=== PATIENT | female | born 1970 | race Caucasian/White ===

== ENCOUNTER 2018-03-26 14:20 | Emergency (ER) | payer SELFPAY ==
--- OUTSIDE RECORDS SUMMARY | 2018-03-26 14:34 | XMS REPORT ---
:1970 Author Organization [facility] Address [address] [id number] Care Team Providers Name Role Phone Hui Tabares Unavailable Unavailable PROBLEMS Type Condition ICD9-CM IYS54-VD Onset Condition SNOMED Code Code Code Dates Status Problem Vaginal dryness N89.8 Active 18314088 Problem Gastroesophageal K21.9 Active 891323296 reflux disease, esophagitis presence not specified Problem Perimenopausal N95.1 Active 982860025 vasomotor symptoms Problem Varicose veins of I83.813 Active 22100097 both lower extremities with pain Problem Anxiety F41.9 Active 98084972 Problem Breast symptom N64.9 Active 426548589 Problem Mastodynia N64.4 Active 37895440 Problem Low libido R68.82 Active 6690379 Problem Sinusitis, J32.9 Active 71755592 unspecified chronicity, unspecified location Problem Diverticulitis of K57.32 Active 860110933 colon (without mention of hemorrhage) Problem Unspecified pruritic L29.9 Active 886484289 disorder Problem Depressive disorder, F32.9 Active 96940664 not elsewhere classified Problem Allergy, unspecified T78.40XA Active 311145501 not elsewhere classified Problem Anxiety state F41.1 Active 307576225 ALLERGIES Substance Reaction Event Type Date Status PENICILLIN RASH Non Drug Allergy Feb, Active Omeprazole joint pain Drug Allergy Feb, Active Flexeril heartburn Drug Allergy Feb, Active Augmentin Nausea/Vomiting Drug Allergy Feb, Active PAXIL RASH Non Drug Allergy Feb, Active LATEX Rash Non Drug Allergy Feb, Active ENCOUNTERS Encounter Location Date Diagnosis [facility] Tomy Boykin [address] Mar, 2018 [place] [address] [facility] [address] Feb, [place] [address] [facility] Lucretia [address] Feb, Bilateral leg cramps R25.2 [place] [address] and Varicose veins of both lower extremities, unspecified whether complicated I83.93 [facility] [address] Feb, Bilateral leg cramps R25.2 [place] [address] and Anxiety F41.9 [facility] [address] [facility] Feb, [place] [address] [facility] [address] [facility] 05 Feb, 2018 [place] [address] [facility] [address] [facility] Feb, [place] [address] [place] [address] [facility] Jan, [place] [address] [place] [address] [facility] Jan, [place] [address] M79.661 [facility] [address] [facility] 11 Dec, 2017 Mastodynia N64.4 ; [place] [address] symptom N64.9 ; Vaginal dryness N89.8 and Low libido R68.82 [facility] [address] Nov, 2017 Sinusitis, [place] [address] chronicity, unspecified location J32.9 and Conjunctivitis of both eyes, unspecified conjunctivitis type H10.9 [facility] [address] Aug, [place] [address] [facility] Aug, [place] [address] [facility] [address] Jul, [place] [address] [facility] [address] Jul, 2017 [place] [address] [facility] [address] 14 Jul, 2017 Sinusitis, [place] [address] chronicity, unspecified location J32.9 ; Bilateral otitis media, unspecified otitis media type H66.93 and Facial edema R60.0 [place] [address] 14 Jul, 2017 [place] [address] [place] [address] Apr, [place], [place] [address] chronicity, unspecified laterality M25.519 ; Neck pain M54.2 ; Back pain, unspecified back location, unspecified back pain laterality, unspecified chronicity M54.9 and Gastroesophageal reflux disease, esophagitis presence not specified K21.9 [place] [address] Apr, Neck pain M54.2 ; [place] [address] pain, unspecified back location, unspecified back pain laterality, unspecified chronicity M54.9 and Shoulder pain, unspecified chronicity, unspecified laterality M25.519 [facility] [address] [facility] 08 Feb, 2017 [place] [address] gynecological examination Z01.419 ; Breast symptom N64.9 ; Other screening breast examination Z12.39 ; Other screening mammogram Z12.31 ; Vaginal dryness N89.8 and Family history of ovarian cancer Z80.41 [facility] [address] [facility] Dec, [place] [address] N64.4 and Breast thickening N64.59 [facility] [address] [facility] Dec, [place] [address] [facility] [address] [facility] Nov, [place] [address] [place] [address] Nov, [place] [address] location, unspecified back pain laterality, unspecified chronicity M54.9 and Gastroesophageal reflux disease, esophagitis presence not specified K21.9 [place] [address] Nov, [place] [address] [place] [address] October, Back pain, [place] [address] location, unspecified back pain laterality, unspecified chronicity M54.9 and Urinary frequency R35.0 [place] [address] October, [place] [address] [facility] [address] [facility] October, Mastodynia N64.4 [place] [address] thickening N64.59 [facility] [address] October, [place] [address] [facility] [address] [facility] Sep, [place] [address] [facility] [address] [facility] Sep, Mastodynia N64.4 ; [place] [address] symptom N64.9 ; Breast thickening N64.59 and Family history of breast cancer Z80.3 [facility] [address] Sep, [place] [address] [facility] [address] [facility] May, [place] [address] [facility] [address] Apr, [place] [address] [place] [address] Apr, Anxiety state F41.1 ; [place] [address] Gastroesophageal reflux disease, esophagitis presence not specified K21.9 and Multiple allergies Z88.[address] Apr, Joint pain M25.50 ; [place] [address] Encounter for routine gynecological examination Z01.419 ; Screening for cardiovascular condition Z13.6 ; Anxiety state F41.1 ; Other screening breast examination Z12.39 ; Fatigue R53.83 ; Other screening mammogram Z12.31 ; Perimenopausal vasomotor symptoms N95.1 ; Vaginal dryness N89.8 and Vaginal irritation N89.8 [facility] [address] Mar, [place] [address] [facility] [address] Feb, [place] [address] [facility] [address] [facility] Nov, [place] [address] [facility] [address] [facility] Nov, [place] [address] [facility] [address] [facility] Nov, Encounter for [place] [address] gynecological examination Z01.419 ; Other screening breast examination Z12.39 ; Other screening mammogram Z12.31 ; Perimenopausal vasomotor symptoms N95.1 ; Vaginal dryness N89.8 and Vaginal irritation N89.8 [facility] [place] [address] Nov, Joint pain M25.50 ; [place] [address] state F41.1 ; Fatigue R53.83 and Screening for cardiovascular condition Z13.6 [place] [address] Nov, [place] [address] [place] [address] Nov, Joint pain M25.50 ; [place] [address] state F41.1 and Fatigue R53.[address] Aug, [place] [address] Aug, [place] [address] radiation to back R10.9 ; Shortness of breath R06.02 ; Urinary frequency R35.0 and Anxiety F41.[address] Jul, Abdominal pain R10.9 [place] [address] [place] [address] Jun, [place] [address] [place] [address] Mar, [place] [address] [place] [address] Feb, [place] [address] [place] [address] October, [place] [address] [facility] [place] [address] Jul, Depressive [place], [place] [address] elsewhere classified 311 ; Rib pain on left side 786.50 and Abdominal pain 789.00 [facility] [place] [address] Jul, [place] [address] [place] [address] Jul, [place] [address] 599.0 ; Joint pain 719.40 ; Fatigue 780.79 and Esophageal reflux 530.81 [facility] [place] [address] Jul, [place] [address] Jun, [place] [address] [facility] Lu[address]ia [address] Jun, [place] [address] [facility] [address] May, Acute UTI 599.0 [place] [address] Frequency of urination 788.41 [facility] [address] May, [place] [address] [facility] [address] May, [place] [address] [facility] [address] [facility] Apr, Shingles 053.9 [address] [address] [place] [address] [facility] [place] [address] Apr, [place] [address] [facility] [place] [address] Mar, [place] [address] [facility] [address] Feb, [place] [address] tube 381.81 ; Acute lymphadenitis 683 ; Jaw pain 784.92 and Neck pain 723.1 [facility] [address] Jan, Fever 780.60 ; [place] [address] disorder, not elsewhere classified 311 and Joint pain 719.[address] Dec, Depressive [place], [place] [address] elsewhere classified 311 ; Acute sinus infection 461.9 ; Acute otitis media 382.9 ; Urinary frequency 788.41 ; UTI 599.0 and Encounter for screening for cardiovascular disorders V81.2 [facility] [address] Dec, Depressive [place], [place] [address] elsewhere classified 311 ; Acute sinus infection 461.9 ; Acute otitis media 382.9 ; UTI 599.0 ; Urinary frequency 788.41 and Encounter for screening for cardiovascular disorders V81.2 [facility] [address] Nov, [place] [address] [facility] [address] Nov, [place] [address] [facility] [address] [facility] Aug, Pelvic pain in female 625.9 [place] [address] ; Metrorrhagia 626.6 ; Personal history of endometriosis V13.29 ; History of PCOS V13.29 ; Dyspareunia, female 625.0 ; Postcoital bleeding 626.7 and History of uterine fibroid V13.29 [place] [address] Jul, [place] [address] [place] [address] [place], [place] [address] [facility] [address] [facility] 09 Dec, 2012 [place] [address] examination V72.31 ; Diverticulitis of colon (without mention of hemorrhage) 562.11 ; Anxiety state, unspecified 300.00 ; Depressive disorder, not elsewhere classified 311 ; Screening for malignant neoplasm of the cervix V76.2 ; Other screening breast examination V76.19 ; Other screening mammogram V76.12 ; Screening for malignant neoplasm of the rectum V76.41 ; Abdominal pain, left upper quadrant 789.02 ; Abdominal pain, left lower quadrant 789.04 ; Pelvic pain in female 625.9 ; Metrorrhagia 626.6 ; Dyspareunia, female 625.0 ; Postcoital bleeding 626.7 ; Personal history of endometriosis V13.29 ; History of PCOS V13.29 ; History of uterine fibroid V13.29 ; Uterine polyp 621.0 and Vaginitis 616.10 [place] [address] Dec, [place] [address] (without mention of hemorrhage) 562.11 and Anxiety state, unspecified 300.00 [place] [address] Sep, [place] [address] [place] [address] Aug, [place] [address] 382.9 ; Anxiety state, unspecified 300.00 ; Chest pain 786.50 and Depressive disorder, not elsewhere classified 311 [place] [address] Jun, [place] [address] May, [place] [address] disorder 698.9 and Anxiety state, unspecified 300.[address] Apr, [place] [address] disorder 698.9 and Anxiety state, unspecified 300.00 [facility] [address] Apr, Anxiety state, unspecified [facility] [place] [address] 300.[address] [facility] [address] Apr, [place] [address] [facility] [address] Mar, [place] [address] disorder 698.9 and Acute lymphadenitis [address] [facility] [address] Mar, Acute lymphadenitis 683 [place] [address] Unspecified pruritic disorder 698.9 [facility] [address] Mar, [place] [address] [facility] [address] Feb, Acute lymphadenitis 683 ; [place] [address] Unspecified pruritic disorder 698.9 ; Dysfunction of Eustachian tube 381.81 ; Pain in joint, multiple sites 719.49 and Other malaise and fatigue 780.[address] [facility] [address] Feb, Acute lymphadenitis 683 ; [place] [address] Unspecified pruritic disorder 698.9 ; Hordeolum externum 373.11 and Dysfunction of Eustachian tube 381.[address] [facility] [address] Feb, Acute lymphadenitis 683 ; [place] [address] Unspecified pruritic disorder 698.9 and Hordeolum externum 373.11 [facility] [address] [facility] Jul, [place] [address] [facility] [address] May, Abdominal [place], [place] [address] quadrant 789.02 and Loss of weight 783.21 [facility] [address] [facility] Apr, Abdominal pain, [place] [address] quadrant 789.01 [facility] [address] [facility] Apr, [place] [address] associated with female genital organs 625.9 ; Ovulation bleeding 626.5 and Mucous polyp of cervix 622.7 [place] [address] Mar, [place] [address] Mar, [place] [address] (without mention of hemorrhage) 562.11 and Unspecified pyelonephritis 590.80 [facility] [address] [facility] 28 Nov, 2010 [place] [address] examination V72.31 ; Screening for malignant neoplasm of the cervix V76.2 ; Other screening breast examination V76.19 ; Other screening mammogram V76.12 ; Excessive or frequent menstruation 626.2 ; Metrorrhagia 626.6 and Postcoital bleeding 626.[address] October, [place] [address] October, [place] [address] [address] October, Acute sinusitis, [place] [address] unspecified [address] October, [place] [address] [place] [address] Jul, Acute lymphadenitis 683 ; [place] [address] Dysphagia, unspecified 787.20 ; Unspecified pruritic disorder 698.9 ; Allergy, unspecified not elsewhere classified 995.3 and Dysfunction of Eustachian tube 381.[address] Jul, Acute lymphadenitis 683 ; [place] [address] Dysphagia, unspecified 787.20 and Unspecified pruritic disorder 698.[address] Mar, [place] [address] infections of unspecified site 465.[address] Jan, Acute sinusitis, [place] [address] unspecified 461.9 IMMUNIZATIONS No Known Immunizations SOCIAL HISTORY Never Assessed REASON FOR REFERRAL FUNCTIONAL STATUS PLAN OF CARE Activity Details Follow Up 4 Weeks Reason: VITAL SIGNS Weight 158.4 lbs 2018-03-01 Height 66 in 2018-03-01 BMI 25.56 kg/m2 2018-03-01 Heart Rate 67 /min 2018-03-01 Respiratory Rate 20 /min 2018-03-01 Temperature 97.9 degrees Fahrenheit 2018-03-01 Oximetry 1005 2018-03-01 Blood pressure systolic 113 mm Hg 2018-03-01 Blood pressure diastolic 77 mm Hg 2018-03-01 MEDICATIONS Medication Instructions Dosage Frequency Start End Date Duration Status Date Flexeril 10 MG Orally Three 1 tablet as Apr, Active times a day PRN needed 2016 Flonase 50 Nasally Once a 2 spray in Feb, Active MCG/ACT day prn each 2013 nostril Prevacid 30 MG Orally Once a 1 capsule Nov, Active day as needed 2016 Ativan 0.5 MG Orally bid prn October, Active (MDD=2) 2014 Aspirin 325 MG Orally Daily 4-6 tablets 24h Active PROCEDURES No Known procedures RESULTS No Results REASON FOR VISIT 1 week ernesto Insurance Providers [facility] Member Patient Patient Patient Patient Patient Subscriber Subscriber Subscriber Group Insurance Plan Plan Plan Plan ID Relationship Address Phone Name Date of ID Name Date of No Type Insurance Insurance Insurance Coverage to Subscriber Address Phone Name Dates SELF PAY SELF PAY self [place] [id number] ONLY - SP1 ONLY - SP[id number] [phone] CSP OF self TERRY [id number] [address] [address] MEDICAL (GENERAL) HISTORY Type Description Date Medical History Anxiety/Depression Medical History Allergic rhinitis Medical History diverticulitis Medical History DRY EYE SYNDROME Medical History neck injury in 1989 Medical History EKG, STRESS ECHO 08/12/15 NL Medical History Endometriosis s/p hysterectomy 2013 Surgical History Endometriosis procedure 2009 Surgical History Laproscopy 2010 Surgical History total vaginal HYSTERECTOMY and BSO 10/2013 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
--- OUTSIDE RECORDS SUMMARY | 2018-03-26 14:34 | XMS REPORT ---
:1970 Author Organization [facility] Address [address] [id number] Care Team Providers Name Role Phone Hui Tabares Unavailable Unavailable PROBLEMS Type Condition ICD9-CM PHS04-TZ Onset Condition SNOMED Code Code Code Dates Status Problem Vaginal dryness N89.8 Active 89471778 Problem Gastroesophageal K21.9 Active 981526630 reflux disease, esophagitis presence not specified Problem Perimenopausal N95.1 Active 974511765 vasomotor symptoms Problem Varicose veins of I83.813 Active 19906760 both lower extremities with pain Problem Anxiety F41.9 Active 36419130 Problem Breast symptom N64.9 Active 354061486 Problem Mastodynia N64.4 Active 11527030 Problem Low libido R68.82 Active 5553957 Problem Sinusitis, J32.9 Active 00796586 unspecified chronicity, unspecified location Problem Diverticulitis of K57.32 Active 127066349 colon (without mention of hemorrhage) Problem Unspecified pruritic L29.9 Active 248508741 disorder Problem Depressive disorder, F32.9 Active 95709336 not elsewhere classified Problem Allergy, unspecified T78.40XA Active 035570576 not elsewhere classified Problem Anxiety state F41.1 Active 998014566 ALLERGIES No Information ENCOUNTERS Encounter Location Date Diagnosis [facility] [address] Mar, [place] [address] [place] [address] Feb, [place] [address] [place] [address] Feb, Bilateral leg cramps R25.2 [place] [address] and Varicose veins of both lower extremities, unspecified whether complicated I83.93 [facility] [address] Feb, Bilateral leg cramps R25.2 [place] [address] and Anxiety F41.9 [facility] [address] [facility] 11 Feb, 2018 [place] [address] [facility] [address] 05 Feb, 2018 [place] [address] [facility] [address] [facility] Feb, [place] [address] [place] [address] [facility] Jan, [place] [address] [place] [address] [facility] Jan, Pain in [place] [address] M79.661 [facility] [address] 11 Dec, 2017 Mastodynia N64.4 ; [place] [address] symptom N64.9 ; Vaginal dryness N89.8 and Low libido R68.82 [place] [address] Nov, Sinusitis, [place] [address] chronicity, unspecified location J32.9 and Conjunctivitis of both eyes, unspecified conjunctivitis type H10.9 [facility] [address] Aug, [place] [address] [place] [address] Aug, [place] [address] [place] [address] Jul, [place] [address] [facility] [address] Jul, [place] [address] [place] [address] Jul, Sinusitis, [place] [address] chronicity, unspecified location J32.9 ; Bilateral otitis media, unspecified otitis media type H66.93 and Facial edema R60.0 [facility] [address] Jul, [place] [address] [place] [address] Apr, Should[place] [address] chronicity, unspecified laterality M25.519 ; Neck pain M54.2 ; Back pain, unspecified back location, unspecified back pain laterality, unspecified chronicity M54.9 and Gastroesophageal reflux disease, esophagitis presence not specified K21.9 [facility] [address] Apr, Neck pain M54.2 ; [place] [address] pain, unspecified back location, unspecified back pain laterality, unspecified chronicity M54.9 and Shoulder pain, unspecified chronicity, unspecified laterality M25.519 [facility] [address] 08 Feb, 2017 [place] [address] gynecological examination Z01.419 ; Breast symptom N64.9 ; Other screening breast examination Z12.39 ; Other screening mammogram Z12.31 ; Vaginal dryness N89.8 and Family history of ovarian cancer Z80.41 [facility] [address] Dec, Mastody[place] [address] N64.4 and Breast thickening N64.59 [facility] [address] Dec, [place] [address] [facility] [address] Nov, [place] [address] [facility] [address] Nov, Back pain, [place] [address] location, unspecified back pain laterality, unspecified chronicity M54.9 and Gastroesophageal reflux disease, esophagitis presence not specified K21.9 [facility] [address] Nov, [place] [address] [facility] [address] October, Back pain, [place] [address] location, unspecified back pain laterality, unspecified chronicity M54.9 and Urinary frequency R35.0 [facility] [address] October, [place] [address] [facility] [address] October, Mastodynia N64.4 [place] [address] thickening N64.59 [facility] [address] October, [place] [address] [facility] [address] Sep, [place] [address] [facility] [address] Sep, Mastodynia N64.4 ; [place] [address] symptom N64.9 ; Breast thickening N64.59 and Family history of breast cancer Z80.3 [facility] [address] Sep, [place] [address] [facility] [address] May, [place] [address] [facility] [address] Apr, [place] [address] [facility] [address] Apr, Anxiety state F41.1 ; [place] [address] Gastroesophageal reflux disease, esophagitis presence not specified K21.9 and Multiple allergies Z88.9 [place] [address] [facility] Apr, Joint pain M25.50 ; [place] [address] Encounter for routine gynecological examination Z01.419 ; Screening for cardiovascular condition Z13.6 ; Anxiety state F41.1 ; Other screening breast examination Z12.39 ; Fatigue R53.83 ; Other screening mammogram Z12.31 ; Perimenopausal vasomotor symptoms N95.1 ; Vaginal dryness N89.8 and Vaginal irritation N89.8 [facility] [address] Mar, [facility] [place] [address] [facility] [address] Feb, [place] [address] [facility] [address] Nov, [place] [address] [facility] [address] Nov, [place] [address] [facility] [address] Nov, [place] [address] gynecological examination Z01.419 ; Other screening breast examination Z12.39 ; Other screening mammogram Z12.31 ; Perimenopausal vasomotor symptoms N95.1 ; Vaginal dryness N89.8 and Vaginal irritation N89.8 [facility] [address] Nov, Joint pain M25.50 ; [place] [address] state F41.1 ; Fatigue R53.83 and Screening for cardiovascular condition Z13.6 [facility] [address] Nov, [place] [address] [facility] [address] Nov, Joint pain M25.50 ; Anxiety [place] [address] state F41.1 and Fatigue R53.[address] Aug, [place] [address] Aug, [place]dominal [place] [address] radiation to back R10.9 ; Shortness of breath R06.02 ; Urinary frequency R35.0 and Anxiety F41.[address] Jul, Abdominal pain R10.9 [place] [address] [facility] [address] Jun, [place] [address] [facility] [address] Mar, [place] [address] [facility] [address] Feb, [place] [address] [facility] [address] October, [place] [address] [facility] [address] Jul, Depressive disorder, [place] [address] elsewhere classified 311 ; Rib pain on left side 786.50 and Abdominal pain 789.00 [facility] [address] Jul, [place] [address] [facility] [address] Jul, [place] [address] 599.0 ; Joint pain 719.40 ; Fatigue 780.79 and Esophageal reflux 530.81 [facility] [address] Jul, [place] [address] [facility] [address] Jun, [place] [address] [facility] [address] Jun, [place] [address] [facility] [address] May, Acute UTI 599.0 [place] [address] Frequency of urination 788.41 [facility] [address] May, [place] [address] [facility] [address] May, [place] [address] [facility] [address] [facility] Apr, Shingles 053.9 [address] [place] [address] [facility] [address] Apr, [place] [address] [facility] [address] Mar, [place] [address] [place] [address] Feb, [place] [address] tube 381.81 ; Acute lymphadenitis 683 ; Jaw pain 784.92 and Neck pain 723.1 [place] [address] Jan, Fever 780.60 ; [place] [address] disorder, not elsewhere classified 311 and Joint pain 719.[address] Dec, Depressive disorder, [place] [address] elsewhere classified 311 ; Acute sinus infection 461.9 ; Acute otitis media 382.9 ; Urinary frequency 788.41 ; UTI 599.0 and Encounter for screening for cardiovascular disorders V81.[address] Dec, Depressive [place], [place] [address] elsewhere classified 311 ; Acute sinus infection 461.9 ; Acute otitis media 382.9 ; UTI 599.0 ; Urinary frequency 788.41 and Encounter for screening for cardiovascular disorders V81.2 [facility] [address] Nov, [place] [address] [place] [address] Nov, [place] [address] [facility] [address] Aug, Pelvic pain in female 625.9 [place] [address] ; Metrorrhagia 626.6 ; Personal history of endometriosis V13.29 ; History of PCOS V13.29 ; Dyspareunia, female 625.0 ; Postcoital bleeding 626.7 and History of uterine fibroid V13.29 [place] [address] 12 Jul, 2014 [place] [address] [place] [address] Apr, [place] [address] [facility] [address] 09 Dec, 2012 [place] [address] examination V72.31 ; Diverticulitis of colon (without [...] ; Uterine polyp 621.0 and Vaginitis 616.10 [place] [address] Dec, [place] [address] (without mention of hemorrhage) 562.11 and Anxiety state, unspecified 300.[address] Sep, [place] [address] Aug, [place] [address] 382.9 ; Anxiety state, unspecified 300.00 ; Chest pain 786.50 and Depressive disorder, not elsewhere classified [address] Jun, [place] [address] May, [place] [address] disorder 698.9 and Anxiety state, unspecified 300.[address] Apr, [place] [address] disorder 698.9 and Anxiety state, unspecified 300.00 [place] [address] Apr, Anxiety [place], [place] [address] Apr, [place] [address] Mar, Unspecified pruritic [place] [address] disorder 698.9 and Acute lymphadenitis [address] Mar, Acute lymphadenitis 683 [place] [address] Unspecified pruritic disorder 698.[address] Mar, [place] [address] Feb, Acute lymphadenitis 683 ; [place] [address] Unspecified pruritic disorder 698.9 ; Dysfunction of Eustachian tube 381.81 ; Pain in joint, multiple sites 719.49 and Other malaise and fatigue 780.[address] Feb, Acute lymphadenitis 683 ; [place] [address] Unspecified pruritic disorder 698.9 ; Hordeolum externum 373.11 and Dysfunction of Eustachian tube 381.[address] Feb, Acute lymphadenitis 683 ; [place] [address] Unspecified pruritic disorder 698.9 and Hordeolum externum 373.11 [facility] [address] Jul, [place] [address] May, Abdominal [place], [place] [address] quadrant 789.02 and Loss of weight 783.21 [facility] [address] [place] [address] Apr, Abdominal [place], [place] [address] quadrant 789.01 [facility] [address] [place] [address] Apr, [place] [address] associated with female genital organs 625.9 ; Ovulation bleeding 626.5 and Mucous polyp of cervix 622.[address] Mar, Unspecified [place] [address] Mar, [place] [address] (without mention of hemorrhage) 562.11 and Unspecified pyelonephritis 590.80 [facility] [address] 28 Nov, 2010 [place] [address] examination V72.31 ; Screening for malignant neoplasm of the cervix V76.2 ; Other screening breast examination V76.19 ; Other screening mammogram V76.12 ; Excessive or frequent menstruation 626.2 ; Metrorrhagia 626.6 and Postcoital bleeding 626.7 [place] [address] October, [place] [address] [place] [address] October, [place] [address] [place] [address] October, Acute sinusitis, [place] [address] unspecified 461.9 [place] [address] October, [place] [address] [place] [address] Jul, Acute lymphadenitis 683 ; [place] [address] Dysphagia, unspecified 787.20 ; Unspecified pruritic disorder 698.9 ; Allergy, unspecified not elsewhere classified 995.3 and Dysfunction of Eustachian tube 381.81 [place] [address] Jul, Acute lymphadenitis 683 ; [place] [address] Dysphagia, unspecified 787.20 and Unspecified pruritic disorder 698.9 [place] [address] Mar, [place] [address] infections of unspecified site 465.[address] Jan, Acute sinusitis, [place] [address] unspecified 461.9 IMMUNIZATIONS No Known Immunizations SOCIAL HISTORY Never Assessed REASON FOR REFERRAL FUNCTIONAL STATUS PLAN OF CARE VITAL SIGNS MEDICATIONS Unknown Medications PROCEDURES No Known procedures RESULTS No Results REASON FOR VISIT referral issue Insurance Providers [facility] Patient Patient Patient Patient Patient Subscriber Subscriber Subscriber Group Insurance Plan Plan Plan Plan ID Relationship Address Phone Name Date of ID Name Date of No Type Insurance Insurance Insurance Coverage to Subscriber Address Phone Name Dates CSP OF [id number] [phone] CSP OF self [place] [id number] [employer]/[address] [facility] [address] SELF PAY SELF PAY self TERRY [id number] ONLY - SP1 ONLY - SP1 [facility] H[facility]ORY Type Description Date Medical History Anxiety/Depression Medical History Allergic rhinitis Medical History diverticulitis Medical History DRY EYE SYNDROME Medical History neck injury in 1989 Medical History EKG, STRESS ECHO 08/12/15 NL Medical History Endometriosis s/p hysterectomy 2013 Surgical History Endometriosis procedure 2008 Surgical History Laproscopy 2010 Surgical History total vaginal HYSTERECTOMY and BSO 10/2013 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
[2018-03-26] MEDS ORDERED: NS 0.9% 1000 ML* 1,000 ML IV ONE (16:30)
--- NOTE | 2018-03-26 16:30 | ED ---
Lower Extremity - HPI Summary HPI Summary: This patient is a 47 year old F presenting to [facility] accompanied by daughter with a chief complaint of cramping in LLE that began this morning. The patient rates the pain 6/10 in severity. Symptoms aggravated by nothing. Symptoms alleviated by nothing. Patient reports lightheadedness, abd cramping (began 3 weeks ago), nausea, vomiting, and diarrhea. Patient denies fever, CP, and SOB. Patient reports symptoms feeling similar to when she was previously diagnosed with a superficial thrombosis in the RLE. - History of Current Complaint Chief Complaint: EDSoftTissueLowExtr Stated Complaint: LITE HEADED/LEGS CRAMPING/ABD PAIN Time Seen by Provider: 03/26/18 16:21 Hx Obtained From: Patient Onset of Pain: Hours Onset/Duration: Hours Severity Initially: Moderate Severity Currently: Moderate Pain Intensity: 6 Pain Scale Used: 0-10 Numeric Timing: Constant Character Of Pain: Spasmodic Associated Signs And Symptoms: Positive: Other - Positive lightheadedness, abd cramping (began 3 weeks ago), nausea, vomiting, and diarrhea. Negative fever, CP , and SOB. Aggravating Factor(s): Nothing Alleviating Factor(s): Nothing Able to Bear Weight: Yes - Allergies/Home Medications Allergies/Adverse Reactions: Allergies Allergy/AdvReac Type Severity Reaction Status Date / Time amoxicillin [From Augmentin] Allergy GI Upset Verified 03/26/18 14:24 clavulanic acid Allergy GI Upset Verified 03/26/18 14:24 [From Augmentin] PMH/Surg Hx/FS Hx/Imm Hx Previously Healthy: No Cardiovascular History: Reports: Other Cardiovascular Problems/Disorders - Superficial thrombosis in RLE Opthamlomology History: Denies: Hx Legally Blind EENT History: Denies: Hx Deafness - Surgical History Surgery Procedure, Year, and Place: Hysterectomy Hx Anesthesia Reactions: No Infectious Disease History: No Infectious Disease History: Denies: Traveled Outside the [place] in Last 30 Days - Family History Known Family History: Positive: Cardiac Disease, Hypertension - Social History Occupation: Employed Full-time Lives: With Family Alcohol Use: Occasionally Hx Substance Use: No Substance Use Type: Reports: None Hx Tobacco Use: No Smoking Status (MU): Never Smoked Tobacco Review of Systems Negative: Fever Negative: Chest Pain Negative: Shortness Of Breath Positive: Abdominal Pain, Vomiting, Diarrhea, Nausea Positive: Other - Positive cramping in LLE Neurological: Other - Positive lightheadedness All Other Systems Reviewed And Are Negative: Yes Physical Exam - Summary Physical Exam Summary: VITAL SIGNS: Reviewed. GENERAL: Patient is a well-developed and nourished female who is lying comfortable in the stretcher. Patient is not in any acute respiratory distress. HEAD AND FACE: No signs of trauma. No ecchymosis, hematomas or skull depressions. No sinus tenderness. EYES: PERRLA, EOMI x 2, No injected conjunctiva, no nystagmus. EARS: Hearing grossly intact. Ear canals and tympanic membranes are within normal limits. MOUTH: Oropharynx within normal limits. NECK: Supple, trachea is midline, no adenopathy, no JVD, no carotid bruit, no c- spine tenderness, neck with full ROM. CHEST: Symmetric, no tenderness at palpation LUNGS: Clear to auscultation bilaterally. No wheezing or crackles. CVS: Regular rate and rhythm, S1 and S2 present, no murmurs or gallops appreciated ABDOMEN: Soft. No signs of distention. No rebound no guarding, and no masses palpated. Bowel sounds are normal. Tenderness in epigastric area and pulsating mass EXTREMITIES: FROM in all major joints, no edema, no cyanosis or clubbing. Tenderness in left calf NEURO: Alert and oriented x 3. No acute neurological deficits. Speech is normal and follows commands. SKIN: Dry and warm Triage Information Reviewed: Yes Vital Signs On Initial Exam: Initial Vitals Temp Pulse Resp BP Pulse Ox 99.4 F 89 16 131/76 99 03/26/18 14:23 03/26/18 14:23 03/26/18 14:23 03/26/18 14:23 03/26/18 14:23 Vital Signs Reviewed: Yes Diagnostics - Vital Signs Vital Signs Temp Pulse Resp BP Pulse Ox 03/26/18 14:23 99.4 F 89 16 131/76 99 - Laboratory Result Diagrams: 03/26/18 16:36 03/26/18 16:36 Lab Statement: Any lab studies that have been ordered have been reviewed, and results considered in the medical decision making process. - EKG 1638 Cardiac Rate: NL EKG Rhythm: Sinus Rhythm - [address] Segment: Normal - Additional Comments Diagnostic Additional Comments: LLE US reveals, per radiologist, no evidence of deep venous thrombosis is identified. ED physician has reviewed this radiology report. Re-Evaluation - Re-Evaluation First Eval Re-Evaluation Time: 18:50 Change: Unchanged Comment: Discussed results and plan of care with patient Lower Extremity Course/Dx - Course Assessment/Plan: This patient is a 47 year old F presenting to [facility] accompanied by daughter with a chief complaint of cramping in LLE that began this morning. The patient rates the pain 6/10 in severity. Symptoms aggravated by nothing. Symptoms alleviated by nothing. Patient reports lightheadedness, abd cramping (began 3 weeks ago), nausea, vomiting, and diarrhea. Patient denies fever, CP, and SOB. Patient reports symptoms feeling similar to when she was previously diagnosed with a superficial thrombosis in the RLE. Test results without any significant abnormality. Right lower extremity ultrasound impression negative for DVT. Patient was given Toradol for the pain and Pepcid for the epigastric discomfort. After these medications the patients symptoms have resolved. The patient is asymptomatic the patient is feeling better. Therefore the patient was discharged home with follow-up with PCP. I did not perform an abdominal x-ray or a pelvic CTs since the patients symptoms have resolved. I also discussed with the patient since the symptoms have resolved the patient will be discharged home however if the symptoms return she needs to come back immediately because we would have to do an abdominopelvic CT or right upper quadrant ultrasound tonight to rule out any cholecystitis, appendicitis, diverticulitis, or any other abdominal pathology. I discussed all the findings and test results with the patient. Patient was instructed to return to the emergency room immediately if any of the symptoms return or worsens. Plan of care was discussed with the patient and understands and agrees. All questions were answered at patient satisfaction. There were no further complaints or concerns. Lung exam before discharge: CTA B/L. Good air exchange. No wheezing or crackles heard. CVS: S1 and S2 present. No murmurs appreciated. Patient is alert and oriented x 3. Patient is hemodynamically stable. Patient will be discharged home with follow up PCP in the next 2-3 days - Diagnoses Provider Diagnoses: Epigastric pain, Leg pain Discharge - Sign-Out/Discharge Documenting (check all that apply): Patient Departure - Discharge Plan Condition: Stable Disposition: HOME Patient Education Materials: Epigastric Pain (ED), Leg Pain (ED) Referrals: [facility]ERR[facility] [Outside] Additional Instructions: RETURN TO THE EMERGENCY DEPARTMENT FOR NEW OR WORSENING SYMPTOMS - Billing Disposition and Condition Condition: STABLE Disposition: Home - Attestation Statements Document Initiated by Scribe: Yes Documenting Scribe: Cielo Hansen Provider For Whom Mayelinibe is Documenting (Include Credential): Adan Cortes MD Scribe Attestation: ICielo, scribed for Adan Cortes MD on 03/31/18 at 2142. Scribe Documentation Reviewed: Yes Provider Attestation: The documentation as recorded by the mayelinibeCielo accurately reflects the service I personally performed and the decisions made by me, Adan Cortes MD
[2018-03-26 16:51] LABS: ABS Basophils 0 10^3/ul (0-0.2); ABS Eosinophils 0.1 10^3/ul (0-0.6); ABS Lymphocytes 1.3 10^3/ul (1.0-4.8); ABS Monocytes 0.6 10^3/ul (0-0.8); ABS Neutrophils 6.2 10^3/ul (1.5-7.7); ABS Nucleated RBC 0 10^3/ul; Eosinophil % 0.7 % (0-6); Hematocrit 40 % (35-47); Hemoglobin 13.6 g/dl (12.0-16.0); Lymphocyte % 15.8 % (25-47); Mean Corpuscular HGB Conc 34 g/dl (31-36); Mean Corpuscular Hemoglobin 31 pg (27-31); Mean Corpuscular Volume 89 fL (80-97); Nucleated Red Blood Cells % 0; Platelet Count 261 10^3/ul (150-450); Red Blood Count 4.46 10^6/ul (4.00-5.40); Red Cell Distribution Width 13 % (10.5-15); White Blood Count 8.2 10^3/ul (3.5-10.8)
[2018-03-26 17:05] LABS: EGFR Non-African American 95.6 (>60)
--- NOTE | 2018-03-26 17:38 | RAD ---
Indication: Left lower extremity pain. Duplex Doppler sonography of the deep venous system of the left lower extremity deep venous system was performed. Bilaterally the common femoral veins appear patent and compressible. Left proximal greater saphenous vein, proximal deep femoral vein, femoral vein, popliteal vein, posterior tibial veins and peroneal veins appear patent and compressible. IMPRESSION: NO EVIDENCE OF DEEP VENOUS THROMBOSIS IS IDENTIFIED.
[2018-03-26 18:02] LABS: Urine Appearance Clear; Urine Blood Negative (Negative); Urine Color Straw; Urine Ketones Negative (Negative); Urine Protein Negative (Negative); Urine Specific Gravity 1.002 (1.010-1.030); Urine Urobilinogen Negative (Negative)
[2018-03-26] MEDS ORDERED: Famotidine TAB* 20 MG PO ONE (18:26)
[2018-03-26] MEDS ORDERED: Ketorolac INJ* 60 MG/2 ML VIAL IM ONE (18:26)
[2018-03-26 19:28] VITALS: BP 141/68
== END 2018-03-26 19:41 | disposition home or self-care (01) ==
LOC: ED 14:20
DX: M79.605 Pain in left leg (principal); R10.13 Epigastric pain
CPT/HCPCS: 36415; 80053; 81003; 83605; 83690; 83735; 83880; 84484; 84702; 85025; 85730; 86140; 93005; 96361; 96372; 99282; A9270-GY; J1885